=== PATIENT | male | born 1970 | race Caucasian/White ===

== ENCOUNTER 2018-12-19 22:20 | Emergency (ER) | payer OTHER ==
[~2018-12-19] VITALS: Ht 180.3 cm; Wt 93.0 kg
[2018-12-19] MEDS ORDERED: SULFAMETH/TRIMETH 800/160 MG TABLET PO ONE (22:45)
[2018-12-19] MEDS ORDERED: SULFAMETH/TRIMETH 800/160 MG TABLET ONE (22:46)
[2018-12-19 22:54] VITALS: BP 155/86
== END 2018-12-19 22:57 | disposition home or self-care (01) ==
LOC: ER 22:20
DX: S98.111D Complete traumatic amputation of right great toe, subsequent encounter (principal); L08.9 Local infection of the skin and subcutaneous tissue, unspecified; E11.9 Type 2 diabetes mellitus without complications; X58.XXXD Exposure to other specified factors, subsequent encounter
CPT/HCPCS: A4663